=== PATIENT | female | born 1945 | race Caucasian/White ===

== ENCOUNTER 2024-04-14 13:45 | Outpatient (RCR) | payer MEDICARE, SELFPAY | END 2024-05-02 09:07 | disposition home or self-care (01) | PROVIDERS: Visit Provider Orthopaedic Surgery | DX: Z98.890 Other specified postprocedural states (principal); Z96.612 Presence of left artificial shoulder joint; Z51.89 Encounter for other specified aftercare | CPT/HCPCS: 97110; 97140; 97161 ==